=== PATIENT | male | born 1990 | race African-American/Black ===

== ENCOUNTER 2022-05-12 10:21 | Emergency (ER) | payer SELFPAY ==
[2022-05-12] MEDS ORDERED: Ketorolac Tromethamine 30 MG/ML VIAL ONE (10:50)
[2022-05-12] MEDS ORDERED: Lidocaine 1% PF 5 ML VIAL ONE (11:39)
== END 2022-05-12 12:51 | disposition home or self-care (01) ==
LOC: ERS 10:21
DX: S62.337A Displaced fracture of neck of fifth metacarpal bone, left hand, initial encounter for closed fracture (principal); W22.01XA Walked into wall, initial encounter; Y93.89 Activity, other specified
CPT/HCPCS: 29125; 96372; 99283; J1885

== ENCOUNTER 2022-05-20 12:35 | Emergency (ER) | payer SELFPAY | END 2022-05-20 15:49 | disposition left against medical advice (07) | LOC: ERS 12:35 | DX: Z53.21 Procedure and treatment not carried out due to patient leaving prior to being seen by health care provider (principal) ==